=== PATIENT | female | born 1980 | race Caucasian/White ===

== ENCOUNTER 2021-04-15 10:53 | Emergency (ER) | payer OTHER, SELFPAY | END 2021-04-15 11:35 | disposition left against medical advice (07) | PROVIDERS: Emergency Provider Emergency Medicine | DX: R10.9 Unspecified abdominal pain (principal) ==

== ENCOUNTER → 2022-02-15 09:47 | Outpatient (BNVA) | payer OTHER, SELFPAY | PROVIDERS: Visit Provider Internal Medicine | DX: M24.811 Other specific joint derangements of right shoulder, not elsewhere classified (principal) | CPT/HCPCS: 73030; 99203 ==

== ENCOUNTER → 2022-02-22 11:10 | Outpatient (BNVA) | payer OTHER, SELFPAY | PROVIDERS: PCP Nurse Practitioner Family; Visit Provider Internal Medicine | DX: M25.511 Pain in right shoulder (principal); Z91.81 History of falling | CPT/HCPCS: 99213 ==

== ENCOUNTER → 2022-03-04 10:55 | Outpatient (BNVA) | payer OTHER, SELFPAY | PROVIDERS: PCP Nurse Practitioner Family; Visit Provider Internal Medicine | DX: M24.811 Other specific joint derangements of right shoulder, not elsewhere classified (principal) | CPT/HCPCS: 99213 ==

== ENCOUNTER 2022-03-14 16:11 | Outpatient (REF) | payer OTHER, SELFPAY ==
--- NOTE | ~2022-03-14 | MR_ITS ---
EXAMINATION: MR SHOULDER WITHOUT CONTRAST, RIGHT CLINICAL INFORMATION: Fall on shoulder. Pain anterior shoulder. COMPARISON: X-ray the right shoulder February 2022. TECHNIQUE: MRI of the shoulder without contrast was performed on a high-field scanner. FINDINGS: ROTATOR CUFF: Intact. No muscle atrophy or fatty infiltration. BICEPS: Normal. CORACOACROMIAL ARCH: The undersurface of the acromion is curved with no subacromial spur. There is mild hypertrophic changes of the acromioclavicular joint with reactive prominent bone marrow edema pattern on both sides of the joint. LABRUM/CAPSULE: There is heterogeneous increased signal within the superior portion of the posterior labrum extending from approximately the 11 o'clock to the 9 o'clock position on the glenoid. This is compatible with a nondisplaced labral tear. Remaining portions of the labrum ligamentous complex are intact. GLENOHUMERAL JOINT/MARROW: Normal. MR/MR shoulder RT wo con IMPRESSION: Mild osteoarthritis of the acromioclavicular joint with a fairly reactive bone marrow edema pattern associated with this. Nondisplaced tear of the posterior labrum.
== END 2022-03-14 16:12 | disposition home or self-care (01) ==
LOC: HO.MRI 16:11
PROVIDERS: Visit Provider Internal Medicine
DX: M25.511 Pain in right shoulder (principal)
CPT/HCPCS: 73221

== ENCOUNTER 2022-03-17 11:00 | Outpatient (RCR) | payer OTHER, SELFPAY | END 2022-06-06 12:55 | disposition home or self-care (01) | LOC: HO.PT 11:00 | PROVIDERS: PCP Nurse Practitioner Family; Visit Provider Internal Medicine | DX: S40.011D Contusion of right shoulder, subsequent encounter (principal) | CPT/HCPCS: 97110; 97162; 97530 ==

== ENCOUNTER → 2022-03-18 13:08 | Outpatient (BNVA) | payer OTHER, SELFPAY | PROVIDERS: PCP Nurse Practitioner Family; Visit Provider Internal Medicine | DX: S43.401D Unspecified sprain of right shoulder joint, subsequent encounter (principal); X58.XXXD Exposure to other specified factors, subsequent encounter | CPT/HCPCS: 99213 ==